=== PATIENT | female | born 1975 | race Two or more races ===

== ENCOUNTER 2017-07-13 08:35 | Outpatient (CLI) | payer BC | END 2017-07-14 06:11 | disposition home or self-care (01) | LOC: TOM 08:35 | DX: S06.0X1A Concussion with loss of consciousness of 30 minutes or less, initial encounter (principal); S09.8XXA Other specified injuries of head, initial encounter ==

== ENCOUNTER 2017-07-13 08:41 | Outpatient (CLI) | payer BC | END 2017-07-14 06:09 | disposition home or self-care (01) | LOC: RAD 08:41 | DX: S59.801A Other specified injuries of right elbow, initial encounter (principal) ==